=== PATIENT | female | born 1935 | race Asian ===

== ENCOUNTER 2017-01-11 17:40 | Inpatient (IN) | payer MEDICARE, OTHER ==
[~2017-01-11] VITALS: Ht 142.2 cm; Wt 35.5 kg
[~2017-01-11 17:40] MED LIST: ACETAMINOPHEN650 M1 PO; ACETAMINOPHEN650 MG PR; ADULT TUSS100 MG/5 M PO; ALENDRONATE SOD70 MG; ASPIRIN EC81 MG PO; CITRATE OF MAG300 ML PO; CRANBERRY TABL1 EACH PO; DOCUSATE SODIU100 MG PO; DOXYCYCLIN25 MG/5 ML PO; DULCOLAX10 MG PR; FLEET ENEMA133 ML PR; FLUTICASONE PRO16 GM NS; FOSAMAX70 MG PO; GLIPIZIDE XL5 MG PO; GLUCAGON EMERGEN1 MG INJ; GLUCOTROL5 MG PO; KEPPRA500 MG PO; LEVAQUIN500 MG PO; LISINOPRIL10 MG PO; LISINOPRIL2.5 MG PO; MACROBID 100 M100 MG PO; MAGNESIUM CITR100 GM MISC; METFORMIN HCL500 MG PO; MILK OF MA400 MG/5 M PO; MONUROL3 GM PO; MULTI VITAMIN1 EACH PO; NABUMETONE500 MG PO; PANTOPRAZOLE SO40 MG PO; PATANOL5 ML OU; PYRIDIUM100 MG PO; REMERON15 MG PO; SIMVASTATIN20 MG PO; SIMVASTATIN40 MG PO; SPIRIVA18 MCG INH; TERBINAFINE HC250 MG PO; TRAMADOL HCL50 MG PO; VENLAFAXINE H37.5 MG PO; VITAMIN C500 M1 PO; VITAMIN C500 MG PO; VITAMIN D5000 UNIT PO; ZOLOFT25 MG PO
[2017-01-11] MEDS ORDERED: MACROBID 100 M100 MG PO (18:01)
--- NOTE | 2017-01-11 23:40 | NUR ---
REPORT RECIEVED FROM JESENIA MANZO. PT BROUGHT UP FROM ER BY RN. TRANSFERRED FROM STRETCHER TO HOSPITAL BED. PT IS NON-VERBAL, DROWSY, R SIDE HEMIPLEGIA. LUNG SOUNDS DIM, HR REGULAR, BS AUSCULTATED. PT IN NO APPARENT DISTRESS. CALL TOBIAS IN REACH.
--- NOTE | 2017-01-12 00:38 | NUR ---
PT RESTING IN BED. IVF STARTED. KEPPRA INFUSING. PT SMILING AT TIMES, IN NO APPARENT DISTRESS.
--- NOTE | 2017-01-12 01:13 | NUR ---
PT SLEEPING. CALL TOBIAS IN REACH.
--- NOTE | 2017-01-12 02:03 | NUR ---
PT SLEEPING. ABX INFUSING.
--- NOTE | 2017-01-12 02:34 | NUR ---
CASING SEWER IN OBTAINING BS.
--- NOTE | 2017-01-12 04:35 | NUR ---
REMOVED OLD GOFF CATHETER, INSERTED 16F CATHETER USING STERILE TECHNIQUE. PAGE MAKEUP SYSTEM OPERATOR ASSISTED. GOFF DRAINING. INSERTION TIME 0420. REPOSITIONED PT ON L SIDE. SMEAR NOTED IN BRIEF, ROLANDO CARE PERFORMED WITH BRIEF CHANGED. IVF INFUSING W/O DIFFICULTY. PT APPEARS COMFORTABLE, NO APPARENT DISTRESS. CALL TOBIAS IN REACH.
--- NOTE | 2017-01-12 05:07 | NUR ---
PT SLEEPING. CONT OX APPLIED. TITRATED O2 TO 1L/MIN. PT STILL MAINTAINING 100% O2. CALL TOBIAS IN REACH.
--- NOTE | 2017-01-12 06:07 | NUR ---
PT ADMITTED LAST NIGHT FROM [facility]. BROUGHT IN FOR ALTERED LOC. PT SOMNOLENT UPON ARRIVAL. SHE HAS BEEN DROWSY BUT EASILY AROUSABLE ALL NIGHT.H/O ISCHEMIC STROKE W/ R SIDE HEMIPLEGIA. EXPRESSIVE APHASIA A RESULT OF STROKE. CHEST XRAY SHOWS POSSIBLE INFILTRATE VS MASS. CHRONIC GOFF CATHETER THAT WAS CHANGED THIS MORNING. +1 BACTERIA IN URINE. PT REMAINS NPO. IV KEPPRA FOR H/O SEIZURE DISORDER. LOADING DOSE OF LEVAQUIN AND DOSE OF VANCO ADMINISTERED THIS MORNING. SODIUM LEVEL 154 IN ED, RECHECK THIS AM. IV PATENT W/ CONT. IVF.
--- NOTE | 2017-01-12 06:28 | NUR ---
NURSE NOTIFIED RE OUTPUT.
--- NOTE | 2017-01-12 06:44 | NUR ---
REPOSITIONED PT ON L SIDE. CHECKED FOR EPISODE OF INCONT. FOUND DRY.
--- NOTE | 2017-01-12 07:25 | NUR ---
PT RESTING QUIETLY IN BED. EYES OPEN. OPENS EYES TO SOUND. PT UNABLE TO VERBALLY RESPOND, BUT NODS HEAD. WILL PLAN TO TURN PATIENT Q2H. CONTINUOUS PULSE OX READS 97% ON ROOM AIR NOW. LR INFUSING AT 100ML/HR.
--- NOTE | 2017-01-12 09:07 | NUR ---
PT IS RESTING IN BED SAFEY WITH DARVIN LIGHT IN REACH. PT WAS REPOSISTIONED ONTO HER RIGHT SIDE. PT IS NPO BUT IS ALLOWED SWABS. PT WAS GIVEN FRESH WARM BANKETS.PT SHOOK HER HEAD NO WHEN ASKED IF SHE NEEDED ANYTHING ELSE AT THE MOMENT
--- NOTE | 2017-01-12 13:31 | NUR ---
PT IS RESTING IN BED SAFEY WITH CALL LIGHT IN REACH. PT WAS REPOSITIONED SUPINE AND FLOATED WITH PILOWS ON BOTH SIDES. PT IS HAVING SOME DISCOMFORT, BUT CAN NOT SPECIFY WHERE, NURSE AWARE.
--- NOTE | 2017-01-12 13:40 | NUR ---
PATIENT GIVEN 650MG OF TYLENOL CRUSHED IN APPLESAUCE, PATIENT TOLERATED WELL.
[2017-01-12] MEDS ORDERED: THERACRAN650 MG PO (15:51)
[2017-01-12] MEDS ORDERED: GLUCAGON EMERGEN1 MG INJ (15:54)
[2017-01-12] MEDS ORDERED: SENNA PLUS TAB1 EACH PO (15:57)
--- NOTE | 2017-01-12 15:59 | NUR ---
MED REC COMPLETE
--- NOTE | 2017-01-12 17:22 | NUR ---
PATIENT WAKENS TO SOUND. ADVANCED DIET TO CLEAR LIQUIDS. TOLERATING WELL. REPOSITIONED Q2H. GOFF CATHETER INTACT. URINE OUTPUT BORDERLINE. TYLENOL GIVEN X1 FOR PAIN.
--- NOTE | 2017-01-12 17:42 | NUR ---
PT IS RESTING IN BED SAFEY WITH CALL LIGHT IN REACH. PT APPEARS TO BE VERY UNCOMFORTABLE AND PAINFUL, NURSE AWARE.
--- NOTE | 2017-01-12 19:05 | NUR ---
SHIFT REPORT RECIEVED. PATIENT RESTING IN BED. APPEARS COMFORTABLE. CALL LIGHT WITHIN REACH.
--- NOTE | 2017-01-12 19:50 | NUR ---
PATIENT FAMILY IN ROOM.
--- NOTE | 2017-01-12 21:51 | EKG ---
[facility] [address] [facility] [place] [address] Signed Normal sinus rhythm Nonspecific ST and T wave abnormality Abnormal ECG When compared with ECG of 04-AUG-2016 20:27, Nonspecific T wave abnormality, worse in Lateral leads Confirmed by MARY WAITE MD ([id number]) on 01/12/2017 9:51:18 PM Electronically Signed By: MARY WAITE MD 01/12/17 215 PATIENT NAME: RADHA ISSA Electrocardiogram DATE OF : 37 PHYSICIAN: MARY WAITE MD REPORT #: [id number] REPORT IS CONFIDENTIAL AND NOT TO BE RELEASED WITHOUT AUTHORIZATION
--- NOTE | 2017-01-12 22:14 | NUR ---
PATIENT RESTING IN BED. GFOF DRAINING CLEAR YELLOW URINE. PATIENT EYES CLOSED, AROUSES TO RN VOICE. PATIENT DOES NOT APPEAR TO BE IN ANY DISTRESS. FACIAL EXPRESSION IS NEUTRAL AND BODY IS RELAXED. CALL LIGHT IN REACH. BED ALARM ON.
--- NOTE | 2017-01-12 22:37 | NUR ---
PATIENT RESTING IN BED. REPOSITIONED ONTO RIGHT SIDE. GOFF IN PACE. ROLANDO CARE NOT NEEDED AT THIS TIME. PATIENT SMILED WHEN ASKED IF SHE WAS OKAY. CALL LIGHT IN REACH.
--- NOTE | 2017-01-12 23:28 | NUR ---
PATIENT APPEARED UNCOMFORTABLE, PULLING BLANKETS OFF AND MOVING AROUND IN THE BED. PATIENT HAD A BM SMEAR. ROLANDO CARE PERFORMED. PATIENT POSITIONED ON LEFT SIDE.
--- NOTE | 2017-01-12 23:46 | NUR ---
PATIENT PULSE OX, O2 83% ON RA. TITRATED TO 1L NC, O2 96%. PATIENT RESTING WITH EYES CLOSED, RR 16.
--- NOTE | 2017-01-13 00:58 | NUR ---
PATIENT RESTING EYES CLOSED. PULSE OX 96%, 1L NC.
--- NOTE | 2017-01-13 03:50 | NUR ---
PATIENT IS TURNED EVERY TWO HOURS.
--- NOTE | 2017-01-13 04:59 | NUR ---
PATIENT RESTING IN BED. EYES CLOSED. RR16. PULSE OX 98%, 1L NC.
--- NOTE | 2017-01-13 05:09 | NUR ---
PATIENT RESTED WELL THROUGHOUT THE NIGHT. PATIENT AWAKEN TO SOUNDS. NONVERBAL. RIGHT SIDE PARALYSIS, LEFT SIDE WEAKNESS. CHRONIC GOFF. GLUCOSE CHECKS. 1L NC WHEN SLEEPING, MAINTAINS SAT 02 94-98%. REPOSITIONED Q2H. URINE OUTPUT QS.
--- NOTE | 2017-01-13 07:14 | NUR ---
PATIENT RESTING IN BED. PULSE OX, 98% 1L NC. PATIENT AWAKENS TO SOUND. NO ROLANDO CARE NEEDED AT THIS TIME.
--- NOTE | 2017-01-13 08:09 | NUR ---
patient resting in bed with eyes closed.
--- NOTE | 2017-01-13 08:31 | NUR ---
PT GETTING SWALLOW EVAL AT THIS TIME.
--- NOTE | 2017-01-13 08:59 | NUR ---
SWALLOW EVALUATION COMPLETED. SEE DETAILS IN ASSESSMENT. RECOMMEND PUREE FOOD WITH THIN LIQUID BY SPOON ONLY D/T RISK OF ASPIRATION. 1:[address] TO FOLLOW FOR DIET TOLERANCE MS GEOFFREY CCC-NURSING UNIT MANAGER
--- NOTE | 2017-01-13 09:16 | NUR ---
PATIENT SITTING UP IN BED. ASSISTING WITH BREAKFAST.
--- NOTE | 2017-01-13 10:45 | NUR ---
FULL BED BATH DONE. ROLANDO, GOFF, SKIN, ORAL CARE DONE. TURNED ONTO RIGHT SIDE. COMBED HAIR. PATIENT NOW RESTING IN BED YAWNING WITH EYES CLOSED. WARM BLANKET GIVEN. DARVIN BUTTON IN REACH.
--- NOTE | 2017-01-13 11:37 | NUR ---
PT SLEEPING SOUNDLY ON RIGHT SIDE. IV INFUSING WNL.
--- NOTE | 2017-01-13 12:21 | NUR ---
PATIENT SITTING STRAIGHT UP IN BED. ASSISTED WITH LUNCH. REPOSITIONED TO SUPINE. DARVIN BUTTON IN REACH.
--- NOTE | 2017-01-13 14:10 | NUR ---
PATIENT TURNED ONTO LEFT SIDE. DEPENDS CLEAN. CALL BUTTON IN REACH.
--- NOTE | 2017-01-13 14:22 | NUR ---
DR. WAITE ROUNDED ON PT. PT AWAKE IN BED ON BACK. UNABLE TO COMMUNICATE VERBALLY WITH STAFF OR DOCTOR, NODS YES OR NO. DENIES NEEDS OR CONCERNS AT THIS TIME.
[2017-01-13] MEDS ORDERED: LEVOFLOXACIN250 MG PO (14:32)
--- NOTE | 2017-01-13 17:20 | NUR ---
PT SLEEPING UPON ENTERING ROOM. ASKED PT IF SHE WAS HUNGRY AND WANTED TO EAT HER DINNER. PT SHOOK HER HEAD NO AND WENT BACK TO SLEEP.
--- NOTE | 2017-01-13 18:00 | NUR ---
DIAPER CARE DONE. PATIENT TURNED ONTO RIGHT SIDE. NOTIFIED RN ABOUT FEVER AND LOW URINE OUTPUT.
--- NOTE | 2017-01-13 19:05 | NUR ---
SHIFT REPORT RECIEVED. PATIENT LAYING ON RIGHT RIDE. PULSE OX 96% ON 0.5L NC. PATIENT RESTING EYES CLOSED, EYES OPEN TO VOICE. GOFF IN PLACE. HEEL PROTECTORS IN PLACE.
--- NOTE | 2017-01-13 21:00 | NUR ---
ASSESSMENT COMPLETED AND DOCUMENTED. EVENING MEDS GIVEN PER ORDER. ADMINISTERED PO MEDS WITH APPLESAUCE. PATIENT TOLERATED WELL. PATIENT TURNED TO LEFT SIDE. LUNG SOUNDS COURSE THROUGHOUT, EXPIRTORY WHEEZE. PATIENT HOB ELEVATED >45 DEGREES[address]ULSE OX IN PLACE, O2 97% 0.5L NC. HEEL PROTECTORS IN PLACE. NO ROLANDO CARE REQUIRED AT THIS TIME. GOFF DRAINING CLEAR YELLOW URINE.
--- NOTE | 2017-01-13 22:45 | NUR ---
PATIENT RESTING IN BED. EYES OPEN WHEN RN ENTERED THE ROOM. REPOSITONED PATIENT, HOB ELEVATED >45 DEGREES. WHEN ASKED IF PATIENT WAS COMFORTABLE, SHE NODDED HER HEAD YES. GOFF DRAINING CLEAR YELLOW URINE. PULSE OX 94% ON 0.5L NC.
--- NOTE | 2017-01-14 00:15 | NUR ---
PATIENT RESTING IN BED. EYES CLOSED. RR 14. PULSE OX, O2 95% ON 0.5L NC.
--- NOTE | 2017-01-14 01:54 | NUR ---
PATIENT RESTING. RR 16. PULSE OX, 94% ON 0.5L NC.
--- NOTE | 2017-01-14 02:19 | NUR ---
PATIENT RESTING IN BED. EYES CLOSED. RR 16, PULSE OX 92% ON 0.5L NC.
--- NOTE | 2017-01-14 03:27 | NUR ---
PATIENT RESTING IN BED. OPENED EYES TO VOICE. GOFF IN PLACE.
--- NOTE | 2017-01-14 04:23 | NUR ---
PATIENT SALINE LOCK. REPOSITIONED. NO ROLANDO CARE REQUIRED AT THIS TIME. HEEL PROTECTORS IN PLACE. PULSE OX, 92% 0.5L NC.
--- NOTE | 2017-01-14 05:02 | NUR ---
PATIENT RESTED THROGUHOUT SHIFT. TURN Q2H. CHRONIC GOFF, OUTPUT QS, ON LOWER END. MD AWARE. IV SL. DYSPHAGIA DIET-PUREED. SPOON FED LIQUIDS. NEEDS FEEDING ASSIST. PULSE OX, 92-96%, 0.5L NC. HEEL PROTECTORS. HX LEFT SIDE STROKE, RIGHT SIDE PARALYSIS. SUPPOSITORY 01/03/17 ON DAYSHIFT, NO RESULTS.
--- NOTE | 2017-01-14 05:55 | NUR ---
PATIENT RESTING IN BED. PULSE OX, 92% ON 0.5L NC. HEEL PROTECTORS IN PLACE.
--- NOTE | 2017-01-14 09:42 | NUR ---
FAXED CHART NOTES INCLUDING FACESHEET, ER NOTES, EKG, H AND P, PROG NOTE, IMAGING, MEDS AND LABS TO [facility]. ALSO CALLED AND MESSAGE LEFT FOR [facility] TO CALL ME BACK.
--- NOTE | 2017-01-14 09:45 | NUR ---
FAXED ORDERS AND PASRR TO [facility].
== END 2017-01-14 11:05 | disposition home or self-care (01) | DRG 177 ==
LOC: ED 17:40 → MS 22:44
PROVIDERS: ADMIT Internal Medicine
DX: J15.6 Pneumonia due to other Gram-negative bacteria (principal); G93.41 Metabolic encephalopathy; E43 Unspecified severe protein-calorie malnutrition; E87.0 Hyperosmolality and hypernatremia; I69.951 Hemiplegia and hemiparesis following unspecified cerebrovascular disease affecting right dominant side; N39.0 Urinary tract infection, site not specified; E86.0 Dehydration; R13.12 Dysphagia, oropharyngeal phase; D69.59 Other secondary thrombocytopenia; E11.9 Type 2 diabetes mellitus without complications; I69.920 Aphasia following unspecified cerebrovascular disease; G40.909 Epilepsy, unspecified, not intractable, without status epilepticus; Z79.82 Long term (current) use of aspirin; Z88.0 Allergy status to penicillin; Z79.84 Long term (current) use of oral hypoglycemic drugs
CPT/HCPCS: 36415; 36600; 70450; 71010; 80048; 80053; 81001; 82803; 83735; 84100; 85025; 85610; 85730; 87077; 87088; 87184; 87186; 92610; 93005; 93010; 94762; J1650; J1953; J1956; J2185; J3370; J7120

== ENCOUNTER 2017-02-04 08:02 | Emergency (ER) | payer MEDICARE, OTHER ==
[~2017-02-04] VITALS: Ht 142.2 cm; Wt 32.8 kg
[~2017-02-04 08:02] MED LIST changes: +LEVOFLOXACIN250 MG PO; +SENNA PLUS TAB1 EACH PO; +THERACRAN650 MG PO
[2017-02-04] MEDS ORDERED: FLEET ENEMA133 ML PR (09:26)
--- NOTE | 2017-02-04 12:39 | EKG ---
[facility] [address] [facility] [place] [address] Signed Normal sinus rhythm Cannot rule out Anterioseptal Infarct as there is deeper Q waves in V2 in comparison from EKG. Abnormal ECG When compared with ECG of 11-JAN-2017 20:06, No significant change was found Confirmed by MARY WAITE MD ([id number]) on 02/04/2017 12:38:58 PM Electronically Signed By: MARY WAITE MD 02/04/17 1239 PATIENT NAME: MAEGANRADHA Electrocardiogram DATE OF : 37 PHYSICIAN: MARY WAITE MD REPORT #: [id number] REPORT IS CONFIDENTIAL AND NOT TO BE RELEASED WITHOUT AUTHORIZATION
== END 2017-02-04 12:02 ==
LOC: ED 08:02
PROC: 4A0D7LZ Measurement of Urinary Volume, Via Natural or Artificial Opening (ICD-10-PCS; principal; 2017-02-04)
PROC: 0T9B70Z Drainage of Bladder with Drainage Device, Via Natural or Artificial Opening (ICD-10-PCS; 2017-02-04)
DX: T83.098A Other mechanical complication of other urinary catheter, initial encounter (principal); R62.7 Adult failure to thrive; Y84.4 Aspiration of fluid as the cause of abnormal reaction of the patient, or of later complication, without mention of misadventure at the time of the procedure; J44.9 Chronic obstructive pulmonary disease, unspecified; I69.320 Aphasia following cerebral infarction; R68.2 Dry mouth, unspecified; E11.9 Type 2 diabetes mellitus without complications; F03.90 Unspecified dementia, unspecified severity, without behavioral disturbance, psychotic disturbance, mood disturbance, and anxiety; I25.2 Old myocardial infarction; Z90.710 Acquired absence of both cervix and uterus; Z88.0 Allergy status to penicillin; Z79.899 Other long term (current) drug therapy; Z79.82 Long term (current) use of aspirin; Z79.84 Long term (current) use of oral hypoglycemic drugs
CPT/HCPCS: 51702; 51798; 71010; 80053; 81001; 83605; 83880; 85025; 85610; 85730; 87077; 87088; 87186; 93005; 93010; 96360; 99285; J7040